=== PATIENT | male | born 1955 | race Caucasian/White ===

== ENCOUNTER → 2017-07-29 | Outpatient (CLI) | payer BC ==
--- NOTE | 2017-07-29 19:12 | US ---
EXAMINATION TYPE: US scrotum with doppler. Grayscale and color Doppler Duplex imaging performed of t chintan scrotum. DATE OF EXAM: 07/29/2017 COMPARISON: NONE CLINICAL HISTORY: N43.3 hydrocele unspecified. Right side edema EXAM MEASUREMENTS: TESTICLES: Right Testicle: 2.2 x .36 x 3.1 cm Left Testicle: 3.6 x 2.3 x 3.2 cm EPIDIDYMIS HEAD: Right Epididymis: 0.9 x 0.6 x 0.7 cm Left Epididymis: 1.3 x 0.5 x 0.9 cm Doppler performed to assess for testicular vascularity; good bilateral color flow and waveforms are s een. There is no evidence of testicular torsion. Presence of hydroceles: Yes right side Presence of varicoceles: no IMPRESSION: There is a large right-sided hydrocele. No testicular torsion or mass.
== END | disposition home or self-care (01) ==
LOC: RADUSMAIN 17:44
PROVIDERS: ATTEND Family Medicine
DX: N43.3 Hydrocele, unspecified (principal)
CPT/HCPCS: 76870; 93975

== ENCOUNTER → 2018-11-24 | Outpatient (CLI) | payer BC ==
[~2018-11-24] MED LIST: DOBUTamine DRIP for NUC MED 500 MG in DEXTROSE/WATER 1 250ML.BAG IV ONE
--- NOTE | 2018-11-25 09:05 | ECHOS ---
STRESS ECHOCARDIOGRAM DOBUTAMINE STRESS ECHO DATE OF SERVICE: 11/24/2018 INDICATIONS: Pre-op. MEDICATIONS: Losartan. BASELINE HEART RATE: 67 BASELINE BLOOD PRESSURE: 121/71 MAXIMUM HEART RATE: 133 MAXIMUM BLOOD PRESSURE: 110/56 85% MPHR: 135 100% MPHR: 159 METS: MAXIMUM STAGE REACHED: TOTAL EXERCISE TIME: CLINICAL INFORMATION: Dobutamine stress echocardiographic study was performed. Peak heart rate of 133 was achieved. Maximum blood pressure of 110/56 mmHg was noted. Resting EKG shows normal sinus rhythm with normal CO interval and QRS duration and normal ST-T waves. During dobutamine infusion, J-point depression with upsloping ST segments were noted. Occasional PVCs were noted. The baseline echocardiographic images reveal normal left ventricular chamber size with normal left ventricular systolic function. At the peak dose of dobutamine infusion, normal increase in the wall thickness and contractility is noted. FINAL IMPRESSION: 1. This dobutamine stress echocardiographic study is negative for stress-induced ischemia. 2. Occasional PVCs were noted during dobutamine infusion. MMODL / IJN: [id number] /
== END | disposition home or self-care (01) ==
LOC: RADNMMAIN 09:53
PROVIDERS: ATTEND Family Medicine
DX: R94.31 Abnormal electrocardiogram [ECG] [EKG] (principal)
CPT/HCPCS: 93351; J1250; Q9950

== ENCOUNTER → 2018-12-17 | Outpatient (CLI) | payer BC ==
--- NOTE | 2018-12-17 17:01 | US ---
EXAMINATION TYPE: US abdomen complete DATE OF EXAM: 12/17/2018 COMPARISON: NONE CLINICAL HISTORY: R74.8 elevated liver enzymes. Elevated LFT's, pt has no complaints at this time EXAM MEASUREMENTS: Liver Length: 18.5 cm Gallbladder Wall: 0.2 cm CBD: 0.4 cm Spleen: 14.2 cm Right Kidney: 11.9 x 5.6 x 5.4 cm Left Kidney: 12.6 x 6.6 x 5.0 cm Pancreas: Obscured by bowel gas Liver: Enlarged, echogenic when compared to right kidney, normal less than 15.5 cm. Gallbladder: Slightly contracted, otherwise appeared wnl Evidence for sonographic Washburn's sign: No CBD: wnl Spleen: Enlarged, normal less than 12.5 cm. Right Kidney: wnl Left Kidney: wnl Upper IVC: wnl Abd Aorta: Ectatic without evidence of AAA IMPRESSION: 1. Hepatomegaly. Mild fatty infiltration is present. 2. Mild splenomegaly.
== END | disposition home or self-care (01) ==
LOC: RADUSWWP 08:17
PROVIDERS: ATTEND Family Medicine
DX: K76.0 Fatty (change of) liver, not elsewhere classified (principal); R16.2 Hepatomegaly with splenomegaly, not elsewhere classified
CPT/HCPCS: 76700

== ENCOUNTER → 2020-05-24 | Outpatient (CLI) | payer BC ==
--- NOTE | 2020-05-24 16:26 | US ---
EXAMINATION TYPE: US prostate transrectal DATE OF EXAM: 05/24/2020 COMPARISON: NONE CLINICAL HISTORY: R97.20 elevated psa. This examination was performed using the transrectal probe. EXAM MEASUREMENTS: Gland Size: 8.9 x 3.5 x 4.4cm Volume: 47.5 Predicted PSA: 5.7 Actual PSA (if available):4.5 Heterogeneous gland without obvious mass. IMPRESSION: 1. Prostate hypertrophy Predicted PSA = volume x 0.12 ng/ml Calculated Volume = 0.5236 x L x W x H
== END | disposition home or self-care (01) ==
LOC: RADUSWWP 08:10
PROVIDERS: ATTEND Family Medicine
DX: N40.0 Benign prostatic hyperplasia without lower urinary tract symptoms (principal)
CPT/HCPCS: 76872

== ENCOUNTER → 2023-01-15 | Outpatient (CLI) | payer MEDICARE ==
--- NOTE | 2023-01-15 14:41 | US ---
EXAMINATION TYPE: US kidneys/renal and bladder DATE OF EXAM: 01/15/2023 COMPARISON: NONE CLINICAL INDICATION: Male, 67 years old with history of N18.31 CHRONIC KID DISEASE, STAGE 3A; EXAM MEASUREMENTS: Right Kidney: 12.8 x 5.8 x 6.2 cm Left Kidney: 12.6 x 6.4 x 5.8 cm Post Void Residual Volume: 350.7 mL Right Kidney: No hydronephrosis or masses seen Left Kidney: No hydronephrosis or masses seen Bladder: floating debris noted, mild bladder wall trabeculations, and left posterior bladder wall div erticulum measuring 4.0 cm. Bilateral Jets seen: Yes Normal Post Void Residual: no IMPRESSION: 1. No hydronephrosis. 2. Trabeculated bladder wall along with a left posterior bladder wall diverticulum measuring 4.0 cm. These findings go along with the abnormal increased post void bladder volume of 350 mL. Findings are compatible with chronic bladder outlet obstruction and urinary retention. 3. Floating debris within the bladder could reflect some hemorrhagic or infective debris.
== END | disposition home or self-care (01) ==
LOC: RADUSWWP 06:56
PROVIDERS: ATTEND Family Medicine
DX: N18.31 Chronic kidney disease, stage 3a (principal); N32.89 Other specified disorders of bladder; N32.3 Diverticulum of bladder
CPT/HCPCS: 76770